=== PATIENT | male | born 1965 | race Caucasian/White ===

== ENCOUNTER 2016-02-19 15:14 | Emergency (ER) | payer BC ==
[2016-02-19] MEDS ORDERED: NS 0.9% 1000 ML* 1,000 ML IV ONE ×2 (15:26→16:53)
[2016-02-19] MEDS ORDERED: Ondansetron INJ* 2 MG/ML VIAL IV ONE ×2 (15:26→16:53)
[2016-02-19] MEDS ORDERED: HYDROmorphone INJ* 1 MG/ML CARPUJECT SYRINGE IV ONE ×4 (15:26→20:13)
[2016-02-19] MEDS ORDERED: Ketorolac INJ* 30 MG/ML 1 ML VIAL IV ONE (15:26)
[2016-02-19] MEDS ORDERED: Ondansetron INJ* 2 MG/ML VIAL ONE (15:30)
[2016-02-19 15:47] LABS: Hematocrit 47 % (42-52); Hemoglobin 15.8 g/dl (14.0-18.0); Mean Corpuscular HGB Conc 34 g/dl (31-36); Mean Corpuscular Hemoglobin 29 pg (27-31); Mean Corpuscular Volume 85 fL (80-94); Mean Platelet Volume 8 um3 (7.4-10.4); Red Blood Count 5.49 10^6/ul (4.0-5.4); Red Cell Distribution Width 15 % (10.5-15); White Blood Count 10.1 10^3/ul (3.5-10.8)
--- NOTE | 2016-02-19 15:58 | RAD ---
CLINICAL HISTORY: Left flank pain COMPARISON: None TECHNIQUE: Multiple contiguous axial CT scans were obtained of the abdomen and pelvis, without intravenous contrast enhancement. Coronal and sagittal multiplanar reformations are submitted for review. Oral contrast was not administered. FINDINGS: The study is limited by the lack of intravenous contrast. This limits evaluation of the solid organs and vasculature. LUNG BASES: The lung bases are clear. LIVER: The liver is diffusely low in attenuation compared to the spleen. There are no focal hepatic parenchymal masses. Liver is enlarged measuring 24.6 cm. BILE DUCTS: There is no intrahepatic or extrahepatic biliary dilatation. GALLBLADDER: The gallbladder is normal, without pericholecystic inflammatory change. PANCREAS: The pancreas is normal, without mass or ductal dilatation. SPLEEN: Normal in size and appearance. UPPER GI TRACT: Evaluation of the gastrointestinal tract is limited by incomplete gastric distention. The upper GI tract is unremarkable. SMALL BOWEL AND MESENTERY: The small bowel is normal in contour, course, and caliber. There is no obstruction or dilatation. COLON: The colon is normal in contour, course, caliber. There is no pericolonic inflammatory change. ADRENALS: Normal bilaterally. KIDNEYS: There is a 0.5 cm calculus just distal to the left UPJ, with mild to moderate pelvocaliectasis. There is stranding of the perinephric fat. BLADDER: The bladder is smooth in contour. PELVIC ORGANS: The prostate gland is normal. The seminal vesicles are symmetric. There is minimal stranding of the fat adjacent to the vas deferens on the left near the confluence with the seminal vesicles. AORTA: There is calcific atherosclerotic disease of the abdominal aorta and its branches, without aneurysmal dilatation IVC: Unremarkable LYMPH NODES: There is no lymphadenopathy by size criteria. ABDOMINAL WALL: There is a small fat-containing inguinal hernia. BONES AND SOFT TISSUES: Degenerative changes are noted of the spine OTHER: None IMPRESSION: 1. LEFT UPJ STONE MEASURING 0.5 CM IN SIZE, WITH ASSOCIATED HYDRONEPHROSIS AND STRANDING OF THE PERINEPHRIC FAT. 2. HEPATOMEGALY WITH FATTY INFILTRATION OF THE LIVER. 3. THERE IS MILD INFLAMMATORY CHANGE IN THE LEFT HEMIPELVIS SURROUNDING THE CONFLUENCE OF THE LEFT VAS DEFERENS AND SEMINAL VESICLES. THIS IS OF UNCERTAIN CLINICAL SIGNIFICANCE AND ETIOLOGY.
[2016-02-19 16:03] LABS: Albumin 4.6 g/dL (3.2-5.2); BUN/Creatinine Ratio 13.6 (8-20); C Reactive Protein 10.46 mg/L (< 5.00); Calcium 9.7 mg/dL (8.6-10.3); EGFR African American 91.5 (>60); EGFR Non-African American 71.1 (>60); Globulin 2.8 g/dL (2-4); Potassium 4.1 mmol/L (3.5-5.0); Total Bilirubin 0.4 mg/dL (0.2-1.0); Total Protein 7.4 g/dL (6.4-8.9)
[2016-02-19 18:18] LABS: Urine Bacteria 1+ (Absent); Urine Bilirubin Negative (Negative); Urine Glucose Negative (Negative); Urine Nitrite Positive (Negative)
[2016-02-19] MEDS ORDERED: Gentamicin ADULT (*) 120 MG in NS 0.9% 100 ML* 100 ML IVPB ONE (19:24)
[2016-02-19] MEDS ORDERED: Meropenem 1 GM PREMIX(*) 1 GM/50 ML BAG IV ONE (19:27)
[2016-02-19] MEDS ORDERED: PROCHLORPERAZINE INJ 5 MG/ML 2 ML VIAL IV ONE (20:13)
--- NOTE | 2016-02-19 21:07 | ED ---
Shaun Golden Matthew, scribed for Nils San MD on 02/19/16 at 1532 . Abdominal Pain/Male - HPI Summary HPI Summary: A 50 y/o male presents to the ED with constant, sudden LLQ abdominal pain and testicular pain since 2 hours ago. The patient describes the pain as pressure and rated 10/10 in severity. The pain started while the patient was drinking a alisha hetal with his friends. Associated symptoms include back pain, distended abdomen, and vomiting. The patient denies urinary symptoms. He has never had this pain before. - History of Current Complaint Stated Complaint: ABD PAIN Time Seen by Provider: 02/19/16 15:21 Hx Obtained From: Patient Onset/Duration: Sudden Onset, Lasting Hours, Still Present Timing: Constant Severity Initially: Moderate Severity Currently: Moderate Pain Intensity: 10 Pain Scale Used: 0-10 Numeric Location: Discrete At: LLQ Radiates: No Character: Other: - Pressure Aggravating Factor(s): Nothing Alleviating Factor(s): Nothing Associated Signs And Symptoms: Positive: Back Pain, Vomiting, Other - distended abdomen. Negative: Urinary Symptoms - Allergies/Home Medications Allergies/Adverse Reactions: Allergies Allergy/AdvReac Type Severity Reaction Status Date / Time Amoxicillin [From Augmentin] Allergy Intermediate Hives Verified 02/19/16 15:16 Clavulanic Acid Allergy Intermediate Hives Verified 02/19/16 15:16 [From Augmentin] Valacyclovir Allergy Intermediate See Comment Verified 02/19/16 15:16 PMH/Surg Hx/FS Hx/Imm Hx Endocrine/Hematology History: Denies: Hx Anticoagulant Therapy, Hx Blood Disorders, Hx Diabetes, Hx Unexplained Bleeding Cardiovascular History: Denies: Hx Hypertension, Hx Pacemaker/ICD GI History: Denies: Hx Gastroesophageal Reflux Disease History: Denies: Hx Renal Disease Musculoskeletal History: Reports: Hx Arthritis, Hx Back Problems - laminectomy in neck by Dr. Carr, Hx Bursitis Sensory History: Reports: Hx Contacts or Glasses - MACULAR DEGENRATION, Hx Hearing Aid - DOES NOT WEAR Opthamlomology History: Reports: Hx Contacts or Glasses - MACULAR DEGENRATION Neurological History: Denies: Other Neuro Impairments/Disorders - DENIES Psychiatric History: Denies: Hx Panic Disorder - Surgical History Surgery Procedure, Year, and Place: Laminectomy in neck by Dr. Carr. CARPAL TUNNEL BILATERAL HAND Hx Anesthesia Reactions: No - Immunization History Date of Tetanus Vaccine: Unknown Date of Influenza Vaccine: none Infectious Disease History: No Infectious Disease History: Denies: Traveled Outside the [place] in Last 30 Days - Family History Known Family History: Positive: Cardiac Disease - pulmonary HTN, aortic aneurysm , Diabetes Family History: FHx of AAA at ~60 y/o. FHx of perforated bowel - Social History Lives: With Family Alcohol Use: Weekly Hx Substance Use: No Substance Use Type: Reports: None Hx Tobacco Use: Yes Smoking Status (MU): Current Every Day Smoker Amount Used/How Often: 1PPD Review of Systems Constitutional: Negative Eyes: Negative ENT: Negative Cardiovascular: Negative Respiratory: Negative Positive: Abdominal Pain - LLQ, Vomiting, Other - distended abdomen Genitourinary: Other - Testicular Pain Positive: Myalgia - Back Pain Skin: Negative Neurological: Negative Psychological: Normal All Other Systems Reviewed And Are Negative: Yes Physical Exam Triage Information Reviewed: Yes Vital Signs On Initial Exam: Initial Vitals Temp Pulse Resp BP Pulse Ox 97.3 F 85 20 174/90 97 02/19/16 15:16 02/19/16 15:16 02/19/16 15:16 02/19/16 15:16 02/19/16 15:16 Vital Signs Reviewed: Yes Appearance: Positive: Well-Appearing, Pain Distress - mild, Obese Skin: Positive: Warm, Skin Color Reflects Adequate Perfusion, Dry Head/Face: Positive: Normal Head/Face Inspection Eyes: Positive: Normal ENT: Positive: Normal ENT inspection Neck: Positive: Supple, Nontender Respiratory/Lung Sounds: Positive: Clear to Auscultation, Breath Sounds Present Cardiovascular: Positive: RRR Abdomen Description: Positive: Distended - LLQ tenderness; Firm, Other: - LLQ Tenderness; Firm; Bilateral equal femoral pulses. Negative: Soft Bowel Sounds: Positive: Present Musculoskeletal: Positive: Normal, Strength/ROM Intact Neurological: Positive: Normal Psychiatric: Positive: Normal, Affect/Mood Appropriate Diagnostics - Vital Signs Vital Signs Temp Pulse Resp BP Pulse Ox 02/19/16 15:16 97.3 F 85 20 174/90 97 - Laboratory Lab Results: Lab Results 02/19/16 02/19/16 02/19/16 Range/Units 15:38 15:38 15:38 WBC 10.1 (3.5-10.8) 10^3/ul RBC 5.49 H (4.0-5.4) 10^6/ul Hgb 15.8 (14.0-18.0) g/dl Hct 47 (42-52) % MCV 85 (80-94) fL MCH 29 (27-31) pg MCHC 34 (31-36) g/dl RDW 15 (10.5-15) % Plt Count 206 (150-450) 10^3/ul MPV 8 (7.4-10.4) um3 Neut % (Auto) 77.2 (38-83) % Lymph % (Auto) 13.0 L (25-47) % Talbot % (Auto) 7.5 (1-9) % Eos % (Auto) 1.7 (0-6) % Baso % (Auto) 0.6 (0-2) % Absolute Neuts (auto) 7.8 H (1.5-7.7) 10^3/ul Absolute Lymphs (auto) 1.3 (1.0-4.8) 10^3/ul Absolute Monos (auto) 0.8 (0-0.8) 10^3/ul Absolute Eos (auto) 0.2 (0-0.6) 10^3/ul Absolute Basos (auto) 0.1 (0-0.2) 10^3/ul Absolute Nucleated RBC 0 10^3/ul Nucleated RBC % 0 Sodium 129 L (133-145) mmol/L Potassium 4.1 (3.5-5.0) mmol/L Chloride 108 (101-111) mmol/L Carbon Dioxide 23 (22-32) mmol/L Anion Gap -2 L (2-11) mmol/L BUN 15 (6-24) mg/dL Creatinine 1.10 (0.67-1.17) mg/dL Est GFR ( Amer) 91.5 (>60) Est GFR (Non-Af Amer) 71.1 (>60) BUN/Creatinine Ratio 13.6 (8-20) Glucose 124 H (70-100) mg/dL Lactic Acid 2.0 (0.5-2.0) mmol/L Calcium 9.7 (8.6-10.3) mg/dL Total Bilirubin 0.40 (0.2-1.0) mg/dL AST 20 (13-39) U/L ALT 30 (7-52) U/L Alkaline Phosphatase 72 (34-104) U/L C-Reactive Protein 10.46 H (< 5.00) mg/L Total Protein 7.4 (6.4-8.9) g/dL Albumin 4.6 (3.2-5.2) g/dL Globulin 2.8 (2-4) g/dL Albumin/Globulin Ratio 1.6 (1-3) Lipase 16 (11.0-82.0) U/L Urine Color Urine Appearance Urine pH (5-9) Ur Specific [place] (1.010-1.030) Urine Protein (Negative) Urine Ketones (Negative) Urine Blood (Negative) Urine Nitrate (Negative) Urine Bilirubin (Negative) Urine Urobilinogen (Negative) Ur Leukocyte Esterase (Negative) Urine WBC (Auto) (Absent) Urine RBC (Auto) (Absent) Ur Squamous Epith Cells (Absent) Urine Bacteria (Absent) Urine Glucose (Negative) 02/19/16 Range/Units 17:55 WBC (3.5-10.8) 10^3/ul RBC (4.0-5.4) 10^6/ul Hgb (14.0-18.0) g/dl Hct (42-52) % MCV (80-94) fL MCH (27-31) pg MCHC (31-36) g/dl RDW (10.5-15) % Plt Count (150-450) 10^3/ul MPV (7.4-10.4) um3 Neut % (Auto) (38-83) % Lymph % (Auto) (25-47) % Talbot % (Auto) (1-9) % Eos % (Auto) (0-6) % Baso % (Auto) (0-2) % Absolute Neuts (auto) (1.5-7.7) 10^3/ul Absolute Lymphs (auto) (1.0-4.8) 10^3/ul Absolute Monos (auto) (0-0.8) 10^3/ul Absolute Eos (auto) (0-0.6) 10^3/ul Absolute Basos (auto) (0-0.2) 10^3/ul Absolute Nucleated RBC 10^3/ul Nucleated RBC % Sodium (133-145) mmol/L Potassium (3.5-5.0) mmol/L Chloride (101-111) mmol/L Carbon Dioxide (22-32) mmol/L Anion Gap (2-11) mmol/L BUN (6-24) mg/dL Creatinine (0.67-1.17) mg/dL Est GFR ( Amer) (>60) Est GFR (Non-Af Amer) (>60) BUN/Creatinine Ratio (8-20) Glucose (70-100) mg/dL Lactic Acid (0.5-2.0) mmol/L Calcium (8.6-10.3) mg/dL Total Bilirubin (0.2-1.0) mg/dL AST (13-39) U/L ALT (7-52) U/L Alkaline Phosphatase (34-104) U/L C-Reactive Protein (< 5.00) mg/L Total Protein (6.4-8.9) g/dL Albumin (3.2-5.2) g/dL Globulin (2-4) g/dL Albumin/Globulin Ratio (1-3) Lipase (11.0-82.0) U/L Urine Color Yellow Urine Appearance Cloudy Urine pH 5.0 (5-9) Ur Specific [place] 1.016 (1.010-1.030) Urine Protein 2+(100 mg/dl) H (Negative) Urine Ketones Negative (Negative) Urine Blood 3+ H (Negative) Urine Nitrate Positive H (Negative) Urine Bilirubin Negative (Negative) Urine Urobilinogen Negative (Negative) Ur Leukocyte Esterase 3+ H (Negative) Urine WBC (Auto) 3+(>20/hpf) H (Absent) Urine RBC (Auto) 3+(>10/hpf) H (Absent) Ur Squamous Epith Cells Present H (Absent) Urine Bacteria 1+ H (Absent) Urine Glucose Negative (Negative) Result Diagrams: 02/19/16 15:38 02/19/16 15:38 Lab Statement: Any lab studies that have been ordered have been reviewed, and results considered in the medical decision making process. - CT A/P W/O CT CT Interpretation: Positive (See Comments) - IMPRESSION: 1. LEFT UPJ STONE MEASURING 0.5 CM IN SIZE, WITH ASSOCIATED HYDRONEPHROSIS AND STRANDING OF THE PERINEPHRIC FAT. 2. HEPATOMEGALY WITH FATTY INFILTRATION OF THE LIVER. 3. THERE IS MILD INFLAMMATORY CHANGE IN THE LEFT HEMIPELVIS SURROUNDING THE CONFLUENCE OF THE LEFT VAS DEFERENS AND SEMINAL VESICLES. THIS IS OF UNCERTAIN CLINICAL SIGNIFICANCE AND ETIOLOGY. CT Interpretation Completed By: Radiologist - EKG 18:56 Cardiac Rate: Tachycardia - 106 bpm EKG Rhythm: Sinus Tachycardia ST Segment: Non-Specific Abdominal Pain Fem Course/Dx - Course Assessment/Plan: A 50 y/o male presents to the ED with LLQ abdominal pain and testicular pain since [address] A/P shows a left upj stone measuring 0.5 cm in size, with associated hydronephrosis and stranding of the perinephric fat. His urine is grossly infected with nitrates, 3+ LE, and 3+ wbcs. The patient will be transferred to [place] for further work-up and management, because urology is not can reconditioner at [facility]. Labs were reviewed. - Diagnoses Provider Diagnoses: Hydronephrosis with obstructing calculus, UTI (urinary tract infection) - Provider Notifications Discussed Care Of Patient With: Dr. Francis ([place] [facility]) at 20:03 -- Notified of patient's history and will accept transfer of the patient. Reason For Transfer: Specialty available at [facility] but not can reconditioner. Discharge - Discharge Plan Condition: Stable Disposition: TRANS HIGHER LVL OF CARE FAC Discharge Disposition Comment: The patient needs a transfer, because urology is not available at [facility]. Referrals: Lucas Persaud MD [Primary Care Provider] - The documentation as recorded by the Shaun lundy Matthew accurately reflects the service I personally performed and the decisions made by ca, Nils San MD. Addendum entered and electronically signed by Kaleigh Christensen PA 02/21/16 07: 13: ED Addendum Addendum: Preliminary c/s of urine showed >100,000 E.coli. Will ask Deborah to fax to [place] where the patient was transferred. Addendum entered and electronically signed by Kaleigh Christensen PA 02/22/16 08: 12: ED Addendum Addendum: Final c/s urine available and is coto sensitive. Will ask dog warden, Deborah, to fax to [place].
[2016-02-19 21:08] VITALS: BP 146/66
== END 2016-02-19 21:06 | disposition short-term general hospital (02) ==
LOC: ED 15:14
DX: N13.2 Hydronephrosis with renal and ureteral calculous obstruction (principal); N39.0 Urinary tract infection, site not specified; F17.210 Nicotine dependence, cigarettes, uncomplicated; Z88.0 Allergy status to penicillin
CPT/HCPCS: 36415; 74176; 80053; 81003; 81015; 83605; 83690; 85025; 86140; 87077; 87086; 87186; 93005; J0780; J1170; J1580; J1885; J2185; J2405

== ENCOUNTER 2016-10-31 08:23 | Emergency (ER) | payer BC ==
[2016-10-31 08:32] VITALS: BP 158/95
[2016-10-31] MEDS ORDERED: Clindamycin CAP* 150 MG PO ONE (09:14)
[2016-10-31] MEDS ORDERED: Ondansetron ODT TAB* 4 MG PO ONE (09:14)
--- NOTE | 2016-11-13 09:32 | UC ---
Maurilio Golden Angela, scribed for Melanie Bro MD on 10/31/16 at 0905 . Dental HPI - HPI Summary HPI Summary: This pt is a 51 y/o male presenting to [facility] c/o left lower back dental pain since yesterday morning. Pt additionally c/o nausea and left jaw swelling. Pt has not seen a dentist in 35 years and currently does not have a dentist. He states he has a large filling on that tooth. - History of Current Complaint Chief Complaint: UCDentalProblem Stated Complaint: DENTAL Hx Obtained From: Patient Onset/Duration: Lasting Days Related History: Previous Dental Care on Same Tooth, Swelling - left jaw, Other - nausea - Allergies/Home Medications Allergies/Adverse Reactions: Allergies Allergy/AdvReac Type Severity Reaction Status Date / Time Amoxicillin [From Augmentin] Allergy Intermediate Hives Verified 10/31/16 08:26 Clavulanic Acid Allergy Intermediate Hives Verified 10/31/16 08:26 [From Augmentin] Valacyclovir Allergy Intermediate See Comment Verified 10/31/16 08:26 Home Medications: Home Medications Aleve 2 tab PO PRN 10/31/16 [History] Arthritis Med 1 tab PO DAILY 10/31/16 [History] Gabapentin CAP(*) [Neurontin 100 mg CAP(*)] 1 cap PO TID 10/31/16 [History Confirmed 10/31/16] PMH/Surg Hx/FS Hx/Imm Hx - Additional Past Medical History Additional PMH: PMHx: arthritis Other Endocrine History: DENIES: diabetes Other Cardiovascular History: DENIES: HTN Other History Of: Negative For: Anticoagulant Therapy - Surgical History Surgical History: Yes Surgery Procedure, Year, and Place: CERVICAL DISCECTOMY AND VEGA-LAMINECTOMY C6- C7 (DR. SAM);. LUMBAR RIGHT SIDE DISCECTOMY L1-L2 ( NOV 2015);. CARPAL TUNNEL BILATERAL HAND;. KINDEY STONES WITH STENTING AND REMOVAL OF STENT ; - Family History Known Family History: Positive: Cardiac Disease - pulmonary HTN, aortic aneurysm , Diabetes Family History: FHx of AAA at ~60 y/o. FHx of perforated bowel - Social History Alcohol Use: Weekly Substance Use Type: None Smoking Status (MU): Heavy Every Day Tobacco Smoker Amount Used/How Often: 1PPD Household Exposure Type: Cigarettes - Immunization History Most Recent Influenza Vaccination: never Most Recent Tetanus Shot: 2014 Most Recent Pneumonia Vaccination: never Review of Systems Skin: Negative Eyes: Negative ENT: Other - left lower back dental pain, left jaw swelling Respiratory: Negative Cardiovascular: Negative Gastrointestinal: Nausea Genitourinary: Negative Motor: Negative Neurovascular: Negative Musculoskeletal: Negative Neurological: Negative All Other Systems Reviewed And Are Negative: Yes Physical Exam Triage Information Reviewed: Yes Appearance: Well-Nourished Vital Signs: Initial Vital Signs Temp 98.5 F 10/31/16 08:27 Pulse 84 10/31/16 08:27 Resp 16 10/31/16 08:27 BP 158/95 10/31/16 08:27 Pulse Ox 97 10/31/16 08:27 Vital Signs Reviewed: Yes Eye Exam: Normal ENT Exam: Normal Dental: Positive: Other: - left submandibular lymph node swelling. Neck: Positive: Supple, Nontender Respiratory Exam: Normal, Other - no dyspnea, no tachypnea, normal respiratory rate Cardiovascular Exam: Normal, Other - Heart rate regular, good general skin color , good capillary refill Abdominal Exam: Normal Abdomen Description: Positive: Nontender, No Organomegaly, Soft Bowel Sounds: Positive: Present Musculoskeletal Exam: Normal Musculoskeletal: Positive: Strength Intact Neurological Exam: Normal - nonfocal, grossly intact Psychological Exam: Normal - conversing easily and appropriately Skin Exam: Normal - no visible or reported rash. Dental Complaint Course/Dx - Course Course Of Treatment: Mr. Robles plans to f/u with Dentist (name of dentist as yet unclear). Will start abx, also anti-emetic. Advised to seek medical attention for worse or new problems. Questions as posed answered to the best of my ability. - Differential Dx/Diagnosis Provider Diagnoses: Dental abscess. Odontalgia Discharge - Discharge Plan Condition: Stable Disposition: HOME Prescriptions: Clindamycin Cap(NF) [Clindamycin Cap 300 mg Cap(NF)] 300 mg PO Q6H #40 cap Ondansetron ODT TAB* [Zofran 4 MG Odt TAB*] 4 mg PO Q6H PRN #16 tab.odt PRN Reason: Nausea Patient Education Materials: Probiotic (By mouth), Dental Abscess (ED), Toothache (ED) Referrals: Lucas Persaud MD [Primary Care Provider] - Additional Instructions: Take probiotic or yogurt every day while taking the antibiotics and for 4 days after the antibiotics are finished. Follow up with DENTIST as soon as possible, recommend within one week. Seek medical attention for worse or new problems in the meantime. Check with your primary care physician about pain medication. The documentation as recorded by the Maurilio lundy Angela accurately reflects the service I personally performed and the decisions made by me, Melanie Bro MD.
== END 2016-10-31 09:25 | disposition home or self-care (01) ==
LOC: UCEAST 08:23
DX: K04.7 Periapical abscess without sinus (principal); K08.89 Other specified disorders of teeth and supporting structures; R11.0 Nausea; Z87.442 Personal history of urinary calculi; Z88.1 Allergy status to other antibiotic agents; F17.210 Nicotine dependence, cigarettes, uncomplicated
CPT/HCPCS: 99212; A9270-GY; G0463

== ENCOUNTER 2017-07-30 07:42 | Emergency (ER) | payer BC ==
[2017-07-30] MEDS ORDERED: Ketorolac INJ* 30 MG/ML 1 ML VIAL IV PUSH ONE (10:11)
[2017-07-30] MEDS ORDERED: NS 0.9% 1000 ML* 1,000 ML IV ONE (10:11)
[2017-07-30 10:49] LABS: ABS Basophils 0.1 10^3/ul (0-0.2); ABS Eosinophils 0.4 10^3/ul (0-0.6); ABS Lymphocytes 1.3 10^3/ul (1.0-4.8); ABS Monocytes 0.6 10^3/ul (0-0.8); ABS Neutrophils 5.2 10^3/ul (1.5-7.7); ABS Nucleated RBC 0 10^3/ul; Eosinophil % 4.7 % (0-6); Hematocrit 46 % (42-52); Hemoglobin 15.7 g/dl (14.0-18.0); Lymphocyte % 17.5 % (25-47); Mean Corpuscular HGB Conc 34 g/dl (31-36); Mean Corpuscular Hemoglobin 30 pg (27-31); Mean Corpuscular Volume 88 fL (80-94); Mean Platelet Volume 7.4 um3 (7.4-10.4); Nucleated Red Blood Cells % 0; Platelet Count 221 10^3/ul (150-450); Red Blood Count 5.19 10^6/ul (4.00-5.40); Red Cell Distribution Width 14 % (10.5-15); White Blood Count 7.5 10^3/ul (3.5-10.8)
[2017-07-30 10:53] LABS: Urine Appearance Cloudy; Urine Blood Negative (Negative); Urine Color Yellow; Urine Ketones Negative (Negative); Urine Protein Negative (Negative); Urine Red Blood Cell 1+(3-5/hpf) (Absent); Urine Specific Gravity 1.016 (1.010-1.030); Urine Urobilinogen Negative (Negative); Urine White Blood Cell 1+(6-10/hpf) (Absent)
--- NOTE | 2017-07-30 11:04 | RAD ---
HISTORY: Rt flank pain COMPARISONS: January 10, 2016 TECHNIQUE: Multiple contiguous axial CT scans were obtained of the lumbar spine without intravenous contrast, with coronal and sagittal multiplanar reformations. FINDINGS: SPINAL CANAL: Evaluation of the central canal is limited on CT technique; however, there is no obvious canalicular mass or epidural hemorrhage. ALIGNMENT: The alignment is normal. VERTEBRAL BODIES: There is multilevel anterolateral marginal osteophyte formation. There is evidence of a right hemilaminectomy at L1-L2. Incidentally noted is a small dysraphic defect of the posterior arch of S1. JOINTS: There is mild diffuse facet osteoarthritis. MUSCULATURE: Unremarkable INTERVERTEBRAL DISCS: There is diffuse loss of intervertebral disc height throughout the spine. AXIAL IMAGES: T12-L1: There is marginal osteophyte formation at the neural foramina bilaterally. There is mild right neural foraminal narrowing. There is no osseous central canal stenosis. L1-L2: There is marginal osteophyte formation at the neural foramina bilaterally. There is severe bilateral neuroforaminal narrowing. A laminectomy defect is noted. L2-L3: There is mild disc bulge with marginal osteophyte formation at the neural foramina bilaterally. There is severe left and moderate right neural foraminal narrowing. There is mild narrowing of the central canal. L3-L4: There is mild bilateral neuroforaminal narrowing. There is no osseous central canal stenosis. There is a probable left paracentral disc protrusion measuring 0.3 cm. L4-L5: There is marginal osteophyte formation at the neural foramina bilaterally. There is severe right and moderate left neural foraminal narrowing. There is a broad-based disc bulge without osseous central canal stenosis. L5-S1: There is no osseous neural foraminal narrowing or central canal stenosis. SOFT TISSUES: There is atherosclerosis of the abdominal aorta. OTHER: None IMPRESSION: 1. POSTSURGICAL CHANGE. 2. DEGENERATIVE DISC DISEASE AND OSTEOARTHRITIS. 3. THERE IS MULTILEVEL NEURAL FORAMINAL NARROWING DESCRIBED ABOVE. 4. THERE IS MILD NARROWING OF THE CENTRAL CANAL AT L2-L3.
--- NOTE | 2017-07-30 11:06 | RAD ---
INDICATION: Right flank pain COMPARISON: Renal stone CT February 19, 2016 TECHNIQUE: Noncontrast axial source images were acquired from the level hemidiaphragms to the symphysis pubis as part of CT imaging for renal stone. Lung bases: The lung bases are clear. Liver: The liver is enlarged with findings of hepatic steatosis. Noncontrast imaging shows no evidence of a hepatic mass or ductal dilatation. Gallbladder: There are no calcified gallstones. There is no evidence of wall thickening or pericholecystic fluid.. Spleen: The spleen is normal in size. The noncontrast CT appearance is normal. Pancreas: Noncontrast imaging shows no pancreatic mass or ductal dilitation. Adrenal glands: No masses are identified. Kidneys/Bladder: There is no evidence of nephrolithiasis or CT evidence of hydronephrosis. Noncontrast imaging shows no evidence of a new renal mass. There may be a lower pole angiomyolipoma on the right. The bladder is unremarkable.. Adenopathy: There is no evidence of intraperitoneal or retroperitoneal adenopathy. Evaluation is limited without oral contrast. Fluid collections: There are no free or localized fluid collections. Vessels: The aorta and iliac vessels are normal in caliber. There are no significant atherosclerotic changes. The IVC appears normal Pelvic organs: The prostate and seminal vesicles appear normal GI tract: Evaluation of the bowel is limited without oral contrast. The stomach, small bowel, and lower GI tract appear grossly normal. There are no obstructive findings. The appendix is visualized and appears normal. Soft tissues: No soft tissue abnormalities of the extraperitoneal abdomen or pelvis are identified. Osseous structures: There are no acute osseous findings. IMPRESSION: NO CT EVIDENCE OF UROLITHIASIS. HEPATOMEGALY WITH HEPATIC STEATOSIS.
[2017-07-30 11:32] LABS: EGFR Non-African American 106.9 (>60)
[2017-07-30] MEDS ORDERED: Dexamethasone IV* 4 MG/ML 1 ML (4 MG) IV SLOW PU ONE (11:32)
[2017-07-30] MEDS ORDERED: Diazepam SYRINGE* 5 MG/ML 2 ML SYRINGE (10 MG total) IV ONE (11:32)
--- NOTE | 2017-07-30 11:44 | ED ---
Back Pain - HPI Summary HPI Summary: Patient presents with right flank/back/hip pain that radiates down into his leg. He's had this over the past week but seems to be getting worse. He has a history of kidney stone which led into sepsis and he wants to make sure he does not have this today. He denies fever, chills, chest pain, shortness of breath, abdominal pain, nausea, vomiting, diarrhea, dysuria, urinary urgency, urinary frequency, hematuria, testicular penile pain. He is able to control his bladder and bowels. He admits to a history of lumbar surgery with Dr. Hamilton about a year ago. He's had good benefits since the surgery. He reports his right hip back and thought started bothering him after he had right shoulder surgery. Seemed to be doing well for the first weeks removed his sling but had more pain in the shoulders up with the sling back on and hip started bothering him shortly after this time. He tried some [place] that he had left at home which she reports took the edge off but didn't really make him very comfortable. He is constantly a 7 on a 10 pain and at its worst 9 out of 10. He still able to bear weight and ambulate. Pain is worse when he lifts his hip. - History of Current Complaint Chief Complaint: EDExtremityLower Stated Complaint: HIP PAIN Time Seen by Provider: 07/30/17 09:34 Hx Obtained From: Patient Pain Intensity: 7 - Allergies/Home Medications Allergies/Adverse Reactions: Allergies Allergy/AdvReac Type Severity Reaction Status Date / Time amoxicillin [From Augmentin] Allergy Intermediate Hives Verified 07/30/17 07:48 clavulanic acid Allergy Intermediate Hives Verified 07/30/17 07:48 [From Augmentin] valacyclovir Allergy Intermediate See Comment Verified 07/30/17 07:48 Home Medications: Home Medications HYDROcodone/ACETAMIN 5-325 MG* [[place] 5-325 TAB*] 1 - 2 tab PO Q6H PRN 07/30/17 [History Confirmed 07/30/17] Meloxicam(NF) [Mobic(NF)] 15 mg PO DAILY 07/30/17 [History Confirmed 07/30/17] PMH/Surg Hx/FS Hx/Imm Hx Previously Healthy: Yes Endocrine/Hematology History: Denies: Hx Anticoagulant Therapy, Hx Blood Disorders, Hx Diabetes, Hx Unexplained Bleeding Cardiovascular History: Denies: Hx Hypertension, Hx Pacemaker/ICD GI History: Denies: Hx Gastroesophageal Reflux Disease History: Reports: Hx Kidney Stones, Other Problems/Disorders - urosepsis Musculoskeletal History: Reports: Hx Arthritis, Hx Back Problems - laminectomy in neck by Dr. Carr; lumbar surgery w/ [facility], Hx Bursitis Sensory History: Reports: Hx Contacts or Glasses - MACULAR DEGENRATION, Hx Hearing Aid - DOES NOT WEAR Opthamlomology History: Reports: Hx Contacts or Glasses - MACULAR DEGENRATION Neurological History: Denies: Other Neuro Impairments/Disorders - DENIES Psychiatric History: Denies: Hx Panic Disorder - Surgical History Surgery Procedure, Year, and Place: CERVICAL DISCECTOMY AND VEGA-LAMINECTOMY C6- C7 (DR. CARR);. LUMBAR RIGHT SIDE DISCECTOMY L1-L2 ( NOV 2015);. CARPAL TUNNEL BILATERAL HAND;. KINDEY STONES WITH STENTING AND REMOVAL OF STENT ; Hx Anesthesia Reactions: No - Immunization History Date of Tetanus Vaccine: Unknown Date of Influenza Vaccine: none Infectious Disease History: No Infectious Disease History: Denies: Traveled Outside the [place] in Last 30 Days - Family History Known Family History: Positive: Cardiac Disease - pulmonary HTN, aortic aneurysm , Diabetes Family History: FHx of AAA at ~60 y/o. FHx of perforated bowel - Social History Occupation: Employed Full-time - out on disability at the moment from shoulder surgery - [place] Lives: Alone Alcohol Use: Weekly Hx Substance Use: No Substance Use Type: Reports: None Hx Tobacco Use: Yes Smoking Status (MU): Current Every Day Smoker Amount Used/How Often: 1PPD Review of Systems Constitutional: Negative Negative: Fever, Chills, Fatigue Eyes: Negative ENT: Negative Cardiovascular: Negative Respiratory: Negative Gastrointestinal: Negative Genitourinary: Negative Positive: Arthralgia, Decreased ROM Skin: Negative Positive: Paresthesia - decreased sensation over Rt lateral thigh. Negative: Headache, Weakness, Numbness, Syncope, Slurred Speech Psychological: Normal All Other Systems Reviewed And Are Negative: Yes Physical Exam Triage Information Reviewed: Yes Vital Signs On Initial Exam: Initial Vitals Temp Pulse Resp BP Pulse Ox 97.9 F 90 16 138/76 96 07/30/17 07:43 07/30/17 07:43 07/30/17 07:43 07/30/17 07:43 07/30/17 07:43 Vital Signs Reviewed: Yes Appearance: Positive: Well-Appearing, Pain Distress, Obese Skin: Positive: Warm, Skin Color Reflects Adequate Perfusion, Dry - no skin changes over effected area Head/Face: Positive: Normal Head/Face Inspection - yohana facial tissue Eyes: Positive: Normal, EOMI ENT: Positive: Hearing grossly normal Respiratory/Lung Sounds: Positive: Breath Sounds Present Cardiovascular: Positive: Normal, Pulses are Symmetrical in both Upper and Lower Extremities Bowel Sounds: Positive: Present Musculoskeletal: Positive: Strength/ROM Intact, Pain @ - Rt hip flexion; lumbar flexion, Other - can bear weight and ambulate independently Neurological: Positive: Alert, Oriented to Person Place, Time, CN Intact II-III , Reflexes Intact. Negative: Sensory/Motor Intact - motor intact - report decreased sensation over Rt lateral thigh compared to Lt lateral thigh Psychiatric: Positive: Normal Diagnostics - Vital Signs Vital Signs Temp Pulse Resp BP Pulse Ox 07/30/17 07:43 97.9 F 90 16 138/76 96 - Laboratory Lab Results: Lab Results 07/30/17 07/30/17 07/30/17 Range/Units 10:37 10:37 10:37 WBC 7.5 (3.5-10.8) 10^3/ul RBC 5.19 (4.00-5.40) 10^6/ul Hgb 15.7 (14.0-18.0) g/dl Hct 46 (42-52) % MCV 88 (80-94) fL MCH 30 (27-31) pg MCHC 34 (31-36) g/dl RDW 14 (10.5-15) % Plt Count 221 (150-450) 10^3/ul MPV 7.4 (7.4-10.4) um3 Neut % (Auto) 69.1 (38-83) % Lymph % (Auto) 17.5 L (25-47) % [place] % (Auto) 7.6 H (0-7) % Eos % (Auto) 4.7 (0-6) % Baso % (Auto) 1.1 (0-2) % Absolute Neuts (auto) 5.2 (1.5-7.7) 10^3/ul Absolute Lymphs (auto) 1.3 (1.0-4.8) 10^3/ul Absolute Monos (auto) 0.6 (0-0.8) 10^3/ul Absolute Eos (auto) 0.4 (0-0.6) 10^3/ul Absolute Basos (auto) 0.1 (0-0.2) 10^3/ul Absolute Nucleated RBC 0 10^3/ul Nucleated RBC % 0 Sodium 139 (135-145) mmol/L Potassium 4.3 (3.5-5.0) mmol/L Chloride 107 (101-111) mmol/L Carbon Dioxide 23 (22-32) mmol/L Anion Gap 9 (2-11) mmol/L BUN 13 (6-24) mg/dL Creatinine 0.77 (0.67-1.17) mg/dL Est GFR ( Amer) 137.5 (>60) Est GFR (Non-Af Amer) 106.9 (>60) BUN/Creatinine Ratio 16.9 (8-20) Glucose 103 H (70-100) mg/dL Lactic Acid 1.2 (0.5-2.0) mmol/L Calcium 9.3 (8.6-10.3) mg/dL Total Bilirubin 0.40 (0.2-1.0) mg/dL AST 20 (13-39) U/L ALT 37 (7-52) U/L Alkaline Phosphatase 79 (34-104) U/L C-Reactive Protein 5.16 H (< 5.00) mg/L Total Protein 6.8 (6.4-8.9) g/dL Albumin 4.2 (3.2-5.2) g/dL Globulin 2.6 (2-4) g/dL Albumin/Globulin Ratio 1.6 (1-3) Urine Color Urine Appearance Urine pH (5-9) Ur Specific [place] (1.010-1.030) Urine Protein (Negative) Urine Ketones (Negative) Urine Blood (Negative) Urine Nitrate (Negative) Urine Bilirubin (Negative) Urine Urobilinogen (Negative) Ur Leukocyte Esterase (Negative) Urine WBC (Auto) (Absent) Urine RBC (Auto) (Absent) Ur Squamous Epith Cells (Absent) Urine Bacteria (Absent) Urine Glucose (Negative) 18 Range/Units 10:38 WBC (3.5-10.8) 10^3/ul RBC (4.00-5.40) 10^6/ul Hgb (14.0-18.0) g/dl Hct (42-52) % MCV (80-94) fL MCH (27-31) pg MCHC (31-36) g/dl RDW (10.5-15) % Plt Count (150-450) 10^3/ul MPV (7.4-10.4) um3 Neut % (Auto) (38-83) % Lymph % (Auto) (25-47) % [place] % (Auto) (0-7) % Eos % (Auto) (0-6) % Baso % (Auto) (0-2) % Absolute Neuts (auto) (1.5-7.7) 10^3/ul Absolute Lymphs (auto) (1.0-4.8) 10^3/ul Absolute Monos (auto) (0-0.8) 10^3/ul Absolute Eos (auto) (0-0.6) 10^3/ul Absolute Basos (auto) (0-0.2) 10^3/ul Absolute Nucleated RBC 10^3/ul Nucleated RBC % Sodium (135-145) mmol/L Potassium (3.5-5.0) mmol/L Chloride (101-111) mmol/L Carbon Dioxide (22-32) mmol/L Anion Gap (2-11) mmol/L BUN (6-24) mg/dL Creatinine (0.67-1.17) mg/dL Est GFR ( Amer) (>60) Est GFR (Non-Af Amer) (>60) BUN/Creatinine Ratio (8-20) Glucose (70-100) mg/dL Lactic Acid (0.5-2.0) mmol/L Calcium (8.6-10.3) mg/dL Total Bilirubin (0.2-1.0) mg/dL AST (13-39) U/L ALT (7-52) U/L Alkaline Phosphatase (34-104) U/L C-Reactive Protein (< 5.00) mg/L Total Protein (6.4-8.9) g/dL Albumin (3.2-5.2) g/dL Globulin (2-4) g/dL Albumin/Globulin Ratio (1-3) Urine Color Yellow Urine Appearance Cloudy Urine pH 5.0 (5-9) Ur Specific [place] 1.016 (1.010-1.030) Urine Protein Negative (Negative) Urine Ketones Negative (Negative) Urine Blood Negative (Negative) Urine Nitrate Negative (Negative) Urine Bilirubin Negative (Negative) Urine Urobilinogen Negative (Negative) Ur Leukocyte Esterase Trace A (Negative) Urine WBC (Auto) 1+(6-10/hpf) A (Absent) Urine RBC (Auto) 1+(3-5/hpf) A (Absent) Ur Squamous Epith Cells Present A (Absent) Urine Bacteria Absent (Absent) Urine Glucose Negative (Negative) Result Diagrams: 07/30/17 10:37 07/30/17 10:37 Lab Statement: Any lab studies that have been ordered have been reviewed, and results considered in the medical decision making process. Re-Evaluation - Re-Evaluation First Eval Change: Unchanged Back Pain Course/Dx - Course Course Of Treatment: Patient presents with symptoms lumbar radiculopathy but is concerned about renal lithiasis so will r/o. CT and urine are unremarkable/neg for stone. 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 Other than paresthesia, he is intact and has no s/sx of caudaequina syndrome. Will d/c w/ pain control and f/u w/ Joy as desired. DAnger s/sx of when to return to ED reviewed - pt agrees w/ plan. - Diagnoses Provider Diagnoses: Lumbar radiculopathy Discharge - Sign-Out/Discharge Documenting (check all that apply): Discharge/Admit/Transfer - Discharge Plan Condition: Stable Disposition: HOME Prescriptions: Diazepam TAB(*) [Valium TAB(*)] 5 mg PO TID PRN #15 tab MDD 3 PRN Reason: Pain Lidocaine PATCH 5%* [Lidoderm 5% Patch*] 1 patch TRANSDERM DAILY #30 patch predniSONE TAB* [Deltasone 20 MG TAB*] 60 mg PO DAILY #15 tab Patient Education Materials: Lumbar Radiculopathy (ED) Referrals: Lucas Persaud MD [Primary Care Provider] - Additional Instructions: You appear to have lumbar radiculopathy, a condition where degenerative disks and arthritis in your back can cause swelling around the nerves that go down into her leg and can cause pain. You have been given a medication to reduce inflammation, prednisone. You were also given a muscle relaxer, diazepam. Additionally, you were given a pain patch called lidoderm. Please use at your discretion. You have meloxicam at home - it is advised that you restart this medication unless advised otherwise by the prescriber. This will take the place of ibuprofen or aleve - do not take meloxicam with any other NSAIDs. Is important to follow up with her PCP this week for recheck of symptoms. If necessary, an MRI may be ordered and possibly referral to Dr. Hamilton. *If in the meantime you develop numbness, weakness, change in bowel or bladder habits, return to the emergency department. - Billing Disposition and Condition Condition: STABLE Disposition: Home
[2017-07-30] MEDS ORDERED: Diazepam TAB(*) 5 MG PO ONE (11:45)
[2017-07-30] MEDS ORDERED: Diazepam TAB(*) 5 MG ONE (11:47)
[2017-07-30 11:51] VITALS: BP 138/83
[2017-07-30] MEDS ORDERED: Lidocaine PATCH 5%* 1 PATCH TRANSDERM SCH (12:00)
[2017-07-30] MEDS ORDERED: Lidocaine PATCH 5%* 1 PATCH ONE (12:03)
[2017-07-30] MEDS ORDERED: Lidocaine Patch REMOVE* 1 NOTE MISC PATCH OFF SCH (21:00)
== END 2017-07-30 12:30 | disposition home or self-care (01) ==
LOC: ED 07:42
DX: M51.16 Intervertebral disc disorders with radiculopathy, lumbar region (principal); M47.26 Other spondylosis with radiculopathy, lumbar region; M48.061 Spinal stenosis, lumbar region without neurogenic claudication; K76.0 Fatty (change of) liver, not elsewhere classified; F17.200 Nicotine dependence, unspecified, uncomplicated; Z87.442 Personal history of urinary calculi; Z86.19 Personal history of other infectious and parasitic diseases; Z88.3 Allergy status to other anti-infective agents
CPT/HCPCS: 36415; 72131; 74176; 80053; 81003; 81015; 83605; 85025; 86140; 87086; 96361; 96374; 96375; 99283; A9270-GY; J1100; J1885

== ENCOUNTER 2018-11-24 10:40 | Emergency (ER) | payer BC ==
--- NOTE | 2018-11-24 12:37 | ED ---
Lower Extremity - HPI Summary HPI Summary: This pt is a 53 Y/O M presenting to [facility] due to RLE redness/swelling that has worsened this morning. The pt stated that he has had calf swelling for the past month and the redness began today. He states that he has tingling and is able to ambulate. He denies any current leg pain. He states that has pain associated with his R pelvis. He has been taking Cipro for a UTI since 11/22/18. He denies any fever, chills, N/V, SOB, CP, and headaches. He states that he has had these symptoms before and became septic. He states no aggravating or alleviating factors. He states that he has a PMHx of arthritis. He denies any PMHx of HTN, hypercholesterolemia, and diabetes. - History of Current Complaint Chief Complaint: EDExtremityLower Stated Complaint: RT LEG SWOLLEN AND DISCOLORED PER PT Time Seen by Provider: 11/24/18 12:20 Hx Obtained From: Patient Mechanism Of Injury: Other - states swelling in his calf for a month/erythema that began today Onset of Pain: Days Onset/Duration: Worse Since - about a month for swelling, worsened today when erythema began Severity Initially: Mild Severity Currently: None Pain Intensity: 0 Pain Scale Used: 0-10 Numeric Timing: Constant Location: Is Diffuse - R calf Associated Signs And Symptoms: Positive: Negative - chills, N/V, SOB, CP, and headaches. He, Swelling, Redness. Negative: Fever, Knee Pain Aggravating Factor(s): Nothing Alleviating Factor(s): Nothing Able to Bear Weight: Yes - Allergies/Home Medications Allergies/Adverse Reactions: Allergies Allergy/AdvReac Type Severity Reaction Status Date / Time amoxicillin [From Augmentin] Allergy Intermediate Hives Verified 11/24/18 10:46 clavulanic acid Allergy Intermediate Hives Verified 11/24/18 10:46 [From Augmentin] valacyclovir Allergy Intermediate See Comment Verified 11/24/18 10:46 PMH/Surg Hx/FS Hx/Imm Hx Previously Healthy: Yes Endocrine/Hematology History: Denies: Hx Anticoagulant Therapy, Hx Blood Disorders, Hx Diabetes, Hx Unexplained Bleeding Cardiovascular History: Denies: Hx Hypertension, Hx Pacemaker/ICD GI History: Denies: Hx Gastroesophageal Reflux Disease History: Reports: Hx Kidney Stones, Other Problems/Disorders - urosepsis Denies: Hx Renal Disease - STONES Musculoskeletal History: Reports: Hx Arthritis, Hx Back Problems - laminectomy in neck by Dr. Carr; lumbar surgery w/ Joy, Hx Bursitis Sensory History: Reports: Hx Contacts or Glasses - MACULAR DEGENRATION, Hx Hearing Aid - DOES NOT WEAR Opthamlomology History: Reports: Hx Contacts or Glasses - MACULAR DEGENRATION Neurological History: Denies: Other Neuro Impairments/Disorders - DENIES Psychiatric History: Denies: Hx Panic Disorder - Surgical History Surgery Procedure, Year, and Place: CERVICAL DISCECTOMY AND VEGA-LAMINECTOMY C6- C7 (DR. CARR);. LUMBAR RIGHT SIDE DISCECTOMY L1-L2 ( NOV 2015);. CARPAL TUNNEL BILATERAL HAND;. KINDEY STONES WITH STENTING AND REMOVAL OF STENT ;. LEFT SHOULDER ROTATOR CUFF 08/2017. RIGHT SHOULDER ROTATOR CUFF 07/2017 Hx Anesthesia Reactions: No - Immunization History Date of Tetanus Vaccine: Unknown Date of Influenza Vaccine: none Immunizations Up to Date: Yes Infectious Disease History: No Infectious Disease History: Denies: Traveled Outside the [place] in Last 30 Days - Family History Known Family History: Positive: Cardiac Disease - pulmonary HTN, aortic aneurysm , Hypertension, Diabetes Family History: FHx of AAA at ~60 y/o. FHx of perforated bowel - Social History Alcohol Use: Weekly Hx Substance Use: No Substance Use Type: Reports: None Hx Tobacco Use: Yes Smoking Status (MU): Current Every Day Smoker Amount Used/How Often: 1PPD Review of Systems Negative: Fever, Chills Negative: Chest Pain Negative: Shortness Of Breath Negative: Vomiting, Nausea Musculoskeletal: Other - Calf swelling w/ erythema Negative: Headache All Other Systems Reviewed And Are Negative: Yes Physical Exam - Summary Physical Exam Summary: VITAL SIGNS: Reviewed. GENERAL: Patient is a well-developed and nourished male who is lying comfortable in the stretcher. Patient is not in any acute respiratory distress. HEAD AND FACE: No signs of trauma. No ecchymosis, hematomas or skull depressions. No sinus tenderness. EYES: PERRLA, EOMI x 2, No injected conjunctiva, no nystagmus. EARS: Hearing grossly intact. Ear canals and tympanic membranes are within normal limits. MOUTH: Oropharynx within normal limits. NECK: Supple, trachea is midline, no adenopathy, no JVD, no carotid bruit, no c- spine tenderness, neck with full ROM CHEST: Symmetric, no tenderness at palpation LUNGS: Clear to auscultation bilaterally. No wheezing or crackles. CVS: Regular rate and rhythm, S1 and S2 present, no murmurs or gallops appreciated. ABDOMEN: Soft, non-tender. No signs of distention. No rebound no guarding, and no masses palpated. Bowel sounds are normal. EXTREMITIES: FROM in all major joints, no edema, no cyanosis or clubbing. Swelling, erythema, tenderness to palpitation in the calf NEURO: Alert and oriented x 3. No acute neurological deficits. Speech is normal and follows commands. SKIN: Dry and warm Triage Information Reviewed: Yes Vital Signs On Initial Exam: Initial Vitals Temp Pulse Resp BP Pulse Ox 97.8 F 79 16 155/112 97 11/24/18 10:42 11/24/18 10:42 11/24/18 10:42 11/24/18 10:42 11/24/18 10:42 Vital Signs Reviewed: Yes Procedures - Sedation Patient Received Moderate/Deep Sedation with Procedure: No Diagnostics - Vital Signs Vital Signs Temp Pulse Resp BP Pulse Ox 11/24/18 10:42 97.8 F 79 16 155/112 97 - Laboratory Result Diagrams: 11/24/18 12:57 11/24/18 12:57 Lab Statement: Any lab studies that have been ordered have been reviewed, and results considered in the medical decision making process. - Ultrasound Venous Doppler US Ultrasound Interpretation Completed By: Radiologist Summary of Ultrasound Findings: There is no evidence to suggest a Deep Vein Thrombosis. ED physician has reviewed this report. Lower Extremity Course/Dx - Course Assessment/Plan: Patient is a 53-year-old male who presents to the emergency department with a chief complaint of swelling and redness in the right lower extremity. Blood work without a significant abnormality except for slight anemia, and the CRP is 80.5. Blood cultures pending. Ultrasound of the right lower extremity impression: In the ED course the patient was started on Bactrim. Right lower extremity ultrasound impression: No evidence for DVT. I discussed all the findings and test results with the patient. Patient was instructed to return to the emergency room immediately if any of the symptoms return worsens. Plan of care was discussed with the patient and understands and agrees. All questions were answered at patient satisfaction. There were no further complaints or concerns. Lung exam before discharge: CTA B/L. Good air exchange. No wheezing or crackles heard. CVS: S1 and S2 present. No murmurs appreciated. Patient is alert and oriented x 3. Patient is hemodynamically stable. Patient will be discharged home with follow up PCP in the next 2-3 days - Diagnoses Provider Diagnoses: Cellulitis Discharge ED - Sign-Out/Discharge Documenting (check all that apply): Patient Departure - discharge - Discharge Plan Condition: Stable Disposition: HOME Prescriptions: Sulfamethox/Trimethoprim DS* [Bactrim DS 800/160 TAB*] 1 tab PO BID #20 tab Patient Education Materials: Cellulitis (ED) Referrals: Lucas Persaud MD [Primary Care Provider] - 2 Days Additional Instructions: PLEASE RETURN TO THE EMERGENCY DEPARTMENT FOR ANY NEW OR WORSENING SYMPTOMS. FOLLOW UP WITH YOUR PRIMARY CARE PROVIDER IN 1-3 DAYS. Take the prescribed medications as directed. - Billing Disposition and Condition Condition: STABLE Disposition: Home - Attestation Statements Document Initiated by Jermaine: Yes Documenting Scribe: Eligio Gutierrez Provider For Whom Jermaine is Documenting (Include Credential): Axel Andres MD Scribe Attestation: Eligio Golden scrmichied for Axel Andres MD on 11/24/18 at 1837. Scribe Documentation Reviewed: Yes Provider Attestation: The documentation as recorded by the Eligio ulndy accurately reflects the service I personally performed and the decisions made by me, Axel Andres MD Status of Scribe Document: Viewed
[2018-11-24 13:05] LABS: ABS Basophils 0.1 10^3/ul (0-0.2); ABS Eosinophils 0.4 10^3/ul (0-0.6); ABS Lymphocytes 1.5 10^3/ul (1.0-4.8); ABS Monocytes 0.5 10^3/ul (0-0.8); ABS Neutrophils 3.3 10^3/ul (1.5-7.7); Eosinophil % 6.2 %; Hematocrit 41 % (42-52); Hemoglobin 13.9 g/dL (14.0-18.0); Lymphocyte % 25.6 %; Mean Corpuscular HGB Conc 34 g/dL (31-36); Mean Corpuscular Hemoglobin 29 pg (27-31); Mean Corpuscular Volume 87 fL (80-94); Mean Platelet Volume 7.8 fL (7.4-10.4); Platelet Count 186 10^3/uL (150-450); Red Blood Count 4.75 10^6 /uL (4.18-5.48); Red Cell Distribution Width 14 % (10-15); White Blood Count 5.7 10^3/uL (3.5-10.8)
[2018-11-24 13:20] LABS: Albumin 3.9 g/dL (3.2-5.2); Albumin/Globulin Ratio 1.6 (1-3); BUN/Creatinine Ratio 13.4 (8-20); C Reactive Protein 80.57 mg/L (<8.01); Calcium 8.9 mg/dL (8.6-10.3); EGFR African American 119.4 (>60); EGFR Non-African American 98.7 (>60); Globulin 2.5 g/dL (2-4); Total Bilirubin 0.3 mg/dL (0.2-1.0); Total Protein 6.4 g/dL (6.4-8.9)
[2018-11-24] MEDS ORDERED: Sulfamethox/Trimethoprim DS 800/160* TAB PO ONE (13:49)
[2018-11-24 14:35] VITALS: BP 169/93
== END 2018-11-24 14:34 | disposition home or self-care (01) ==
LOC: ED 10:40
DX: L03.115 Cellulitis of right lower limb (principal); R60.0 Localized edema; Z88.1 Allergy status to other antibiotic agents; Z88.0 Allergy status to penicillin; F17.200 Nicotine dependence, unspecified, uncomplicated
CPT/HCPCS: 36415; 80053; 83605; 85025; 86140; 87040; 99282; A9270-GY

== ENCOUNTER 2022-08-17 13:30 | Inpatient (IN) ==
[2022-08-17 14:18] LABS: ABS Eosinophils 0.4 10^3/uL (0.0-0.5); ABS Lymphocytes 2.5 10^3/uL (1.0-4.8); ABS Monocytes 0.8 10^3/uL (0.0-1.1); ABS Neutrophils 5.9 10^3/uL (1.5-7.6); ABS Nucleated RBC 0.01 10^3/ul; Eosinophil % 3.7 %; Hematocrit 46.1 % (38-53); Hemoglobin 15.5 g/dL (13.2-16.3); Lymphocyte % 26.4 %; Mean Corpuscular Hemoglobin 29.3 pg (27-33); Mean Corpuscular Hgb Conc 33.6 g/dL (31-36); Mean Corpuscular Volume 87.2 fL (80-97); Mean Platelet Volume 8.8 fL (7.5-11.2); Nucleated Red Blood Cells % 0.1 /100 WBC (0.0-0.4); Platelet Count 218 10^3/uL (150-450); Red Blood Count 5.29 10^6/uL (4.06-5.63); Red Cell Distribution Width 14.5 % (12-17); White Blood Count 9.6 10^3/uL (3.6-10.2)
[2022-08-17 15:06] LABS: TSH Ultra Thyroid Stim Horm 1.38 mcIU/mL (0.34-5.60)
[2022-08-17 15:20] LABS: Albumin 4.2 g/dL (3.2-5.2); Albumin/Globulin Ratio 1.5 (1-3); Calcium 9.4 mg/dL (8.6-10.3); Creatinine, Serum 1.02 mg/dL (0.67-1.17); Globulin 2.8 g/dL (2-4); Total Bilirubin 0.3 mg/dL (0.2-1.0); eGFR CKD-EPI 86.8 (>60)
[2022-08-17 15:31] LABS: High Sensitivity Troponin 1 Hr 4 pg/mL (<20)
[2022-08-17] MEDS ORDERED: Albuterol HFA INHALER 8 gm MDI INH ONE (15:53)
[2022-08-17] MEDS ORDERED: Nicotine PATCH 21 MG/24 HR PATCH TRANSDERM ONE (15:53)
[2022-08-17 16:31] LABS: Potassium 4.4 mmol/L (3.5-5.0)
[2022-08-17] MEDS: Enoxaparin 40 MG/0.4 ML SYR SUBCUT SCH (19:19)
[2022-08-17] MEDS ORDERED: Iodixanol (CONTRAST) 320 MG/ML 100 ML SDV IV ONE (20:21)
[2022-08-18 06:13] LABS: ABS Eosinophils 0.3 10^3/uL (0.0-0.5); ABS Lymphocytes 1.8 10^3/uL (1.0-4.8); ABS Monocytes 0.6 10^3/uL (0.0-1.1); ABS Neutrophils 4.9 10^3/uL (1.5-7.6); ABS Nucleated RBC 0.01 10^3/ul; Eosinophil % 4.4 %; Hematocrit 43.9 % (38-53); Hemoglobin 14.8 g/dL (13.2-16.3); Lymphocyte % 23.9 %; Mean Corpuscular Hemoglobin 29.8 pg (27-33); Mean Corpuscular Hgb Conc 33.8 g/dL (31-36); Mean Platelet Volume 8.4 fL (7.5-11.2); Nucleated Red Blood Cells % 0.1 /100 WBC (0.0-0.4); Platelet Count 197 10^3/uL (150-450); Red Blood Count 4.98 10^6/uL (4.06-5.63); Red Cell Distribution Width 14.5 % (12-17); White Blood Count 7.6 10^3/uL (3.6-10.2)
[2022-08-18 06:47] LABS: Calcium 9.1 mg/dL (8.6-10.3); Creatinine, Serum 0.95 mg/dL (0.67-1.17); Potassium 4.6 mmol/L (3.5-5.0); eGFR CKD-EPI 94.5 (>60)
[2022-08-18] MEDS ORDERED: Regadenoson 0.4 MG/5 ML SYRINGE ONE (15:09)
[2022-08-18] MEDS ORDERED: Sulfur Hexaflouride MICROSPHR 25 MG VIAL ONE (15:56)
[2022-08-18] MEDS: Enoxaparin 40 MG/0.4 ML SYR SUBCUT SCH (19:25)
[2022-08-19 07:12] LABS: ABS Basophils 0.1 10^3/uL (0.0-0.1); ABS Eosinophils 0.3 10^3/uL (0.0-0.5); ABS Lymphocytes 1.5 10^3/uL (1.0-4.8); ABS Monocytes 0.6 10^3/uL (0.0-1.1); ABS Neutrophils 4.2 10^3/uL (1.5-7.6); ABS Nucleated RBC 0.01 10^3/ul; Eosinophil % 4.3 %; Hematocrit 43.8 % (38-53); Hemoglobin 14.8 g/dL (13.2-16.3); Lymphocyte % 22.5 %; Mean Corpuscular Hemoglobin 29.7 pg (27-33); Mean Corpuscular Hgb Conc 33.8 g/dL (31-36); Mean Corpuscular Volume 87.9 fL (80-97); Mean Platelet Volume 8.4 fL (7.5-11.2); Nucleated Red Blood Cells % 0.1 /100 WBC (0.0-0.4); Platelet Count 196 10^3/uL (150-450); Red Blood Count 4.98 10^6/uL (4.06-5.63); Red Cell Distribution Width 14.4 % (12-17); White Blood Count 6.6 10^3/uL (3.6-10.2)
[2022-08-19 07:21] LABS: Creatinine, Serum 1.01 mg/dL (0.67-1.17); Potassium 4.4 mmol/L (3.5-5.0); eGFR CKD-EPI 87.8 (>60)
[2022-08-19] MEDS ORDERED: Digoxin IV 0.5 MG/2 ML AMP (0.25 MG/ML) IV SLOW PU ONE (12:21)
[2022-08-19] MEDS: Enoxaparin 40 MG/0.4 ML SYR SUBCUT SCH (17:46)
[2022-08-20 06:31] LABS: ABS Basophils 0.1 10^3/uL (0.0-0.1); ABS Eosinophils 0.3 10^3/uL (0.0-0.5); ABS Lymphocytes 1.7 10^3/uL (1.0-4.8); ABS Monocytes 0.8 10^3/uL (0.0-1.1); ABS Neutrophils 6.6 10^3/uL (1.5-7.6); ABS Nucleated RBC 0.02 10^3/ul; Eosinophil % 3.4 %; Hematocrit 46.2 % (38-53); Hemoglobin 15.7 g/dL (13.2-16.3); Lymphocyte % 18.2 %; Mean Corpuscular Volume 88.1 fL (80-97); Mean Platelet Volume 8.5 fL (7.5-11.2); Nucleated Red Blood Cells % 0.2 /100 WBC (0.0-0.4); Platelet Count 213 10^3/uL (150-450); Red Blood Count 5.25 10^6/uL (4.06-5.63); Red Cell Distribution Width 14.4 % (12-17); White Blood Count 9.5 10^3/uL (3.6-10.2)
[2022-08-20 06:46] LABS: Calcium 9.5 mg/dL (8.6-10.3); Magnesium 2.1 mg/dL (1.9-2.7); Potassium 4.4 mmol/L (3.5-5.0); eGFR CKD-EPI 88.9 (>60)
[2022-08-20] MEDS ORDERED: Albuterol HFA INHALER 8 gm MDI INH PRN (11:54)
[2022-08-20 12:00] LABS: ABS Basophils 0.1 10^3/uL (0.0-0.1); ABS Eosinophils 0.3 10^3/uL (0.0-0.5); ABS Lymphocytes 1.5 10^3/uL (1.0-4.8); ABS Monocytes 0.9 10^3/uL (0.0-1.1); ABS Neutrophils 7.3 10^3/uL (1.5-7.6); ABS Nucleated RBC 0.01 10^3/ul; Eosinophil % 2.9 %; Hematocrit 44.8 % (38-53); Hemoglobin 15.3 g/dL (13.2-16.3); Lymphocyte % 15.2 %; Mean Corpuscular Hemoglobin 29.7 pg (27-33); Mean Corpuscular Hgb Conc 34.2 g/dL (31-36); Mean Corpuscular Volume 86.8 fL (80-97); Nucleated Red Blood Cells % 0.1 /100 WBC (0.0-0.4); Platelet Count 212 10^3/uL (150-450); Red Blood Count 5.16 10^6/uL (4.06-5.63); Red Cell Distribution Width 14.3 % (12-17); White Blood Count 10.1 10^3/uL (3.6-10.2)
[2022-08-20 12:10] LABS: Activated Partial Thrombo Time 30.8 seconds (26.0-38.0); INR 1.14 (0.88-1.18)
[2022-08-20 12:16] LABS: Calcium 9.6 mg/dL (8.6-10.3); Creatinine, Serum 1.02 mg/dL (0.67-1.17); Potassium 4.2 mmol/L (3.5-5.0); eGFR CKD-EPI 86.8 (>60)
[2022-08-20] MEDS: Enoxaparin 40 MG/0.4 ML SYR SUBCUT SCH (18:40)
[2022-08-21 07:08] LABS: ABS Basophils 0.1 10^3/uL (0.0-0.1); ABS Eosinophils 0.3 10^3/uL (0.0-0.5); ABS Lymphocytes 1.7 10^3/uL (1.0-4.8); ABS Monocytes 0.8 10^3/uL (0.0-1.1); ABS Neutrophils 5.2 10^3/uL (1.5-7.6); Hematocrit 45.4 % (38-53); Hemoglobin 15.4 g/dL (13.2-16.3); Lymphocyte % 21.2 %; Mean Corpuscular Hemoglobin 29.7 pg (27-33); Mean Corpuscular Hgb Conc 33.8 g/dL (31-36); Mean Corpuscular Volume 87.6 fL (80-97); Mean Platelet Volume 8.6 fL (7.5-11.2); Nucleated Red Blood Cells % 0.1 /100 WBC (0.0-0.4); Platelet Count 200 10^3/uL (150-450); Red Blood Count 5.18 10^6/uL (4.06-5.63); Red Cell Distribution Width 14.3 % (12-17); White Blood Count 8.2 10^3/uL (3.6-10.2)
[2022-08-21 07:34] LABS: Calcium 9.3 mg/dL (8.6-10.3); Creatinine, Serum 0.98 mg/dL (0.67-1.17); Magnesium 2.1 mg/dL (1.9-2.7); Potassium 4.3 mmol/L (3.5-5.0); eGFR CKD-EPI 91.1 (>60)
[2022-08-21] MEDS ORDERED: NS 0.9% 1000 ml BAG 1,000 ML IV SCH (08:00)
[2022-08-21] MEDS ORDERED: Midazolam 10 mg/10 ml VIAL 1 mg/ml 10 ml VIAL (10 mg) IV SLOW PU ONE (13:00)
[2022-08-21] MEDS ORDERED: fentaNYL 100 mcg/2 ml 50 MCG/ML VIAL IV SLOW PU ONE (13:00)
[2022-08-21] MEDS ORDERED: fentaNYL 100 mcg/2 ml 50 MCG/ML VIAL ONE (15:02)
[2022-08-21] MEDS ORDERED: Midazolam 5 mg/5 ml VIAL 1 mg/ml 5 ml VIAL (5 mg) ONE (15:02)
[2022-08-21] MEDS ORDERED: VERAPAMIL 2.5 MG/ML 2 ML VIAL ** 5 mg/2 ml ONE (15:02)
[2022-08-21] MEDS ORDERED: Iohexol 350 (CONTRAST) 200 ML MDV IV ONE (15:03)
[2022-08-21] MEDS ORDERED: Lidocaine 1% MPF 5 ML VIAL ONE (15:03)
[2022-08-21] MEDS ORDERED: Heparin 1,000 UNIT/ML 10 ml (10,000 UNITS) CATHLAB/DIALYSIS ONE (15:03)
[2022-08-21] MEDS ORDERED: Heparin 2 UNITS/ML 1000 mls 2,000 ML IV ONE (15:03)
[2022-08-21] MEDS ORDERED: nitroGLYCERIN DRIP 25,000 MCG/250 ML BTL ONE (15:05)
[2022-08-21] MEDS: Enoxaparin 40 MG/0.4 ML SYR SUBCUT SCH (18:40)
[2022-08-21 20:27] VITALS: BP 126/53
== END 2022-08-21 20:15 | disposition home or self-care (01) | DRG 287 ==
LOC: ED 13:30 → EDHOLD 13:30 → MEDTELE 19:38 → SUATTDRO 08-19 13:46
PROVIDERS: ADMIT Internal Medicine; ATTEND Internal Medicine Hematology & Oncology